=== PATIENT | female | born 1985 | race American Indian/Alaskan Native ===

== ENCOUNTER 2017-04-29 09:49 | Emergency (ER) | payer OTHER ==
[2017-04-29] MEDS ORDERED: MOTRIN PO ONE (11:18)
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
[2017-04-29 12:02] VITALS: BP 144/91
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
== END 2017-04-29 13:56 | disposition home or self-care (01) ==
LOC: ED 09:49
DX: S13.4XXA Sprain of ligaments of cervical spine, initial encounter (principal); V89.2XXA Person injured in unspecified motor-vehicle accident, traffic, initial encounter; Y93.89 Activity, other specified; Y99.8 Other external cause status; Y92.488 Other paved roadways as the place of occurrence of the external cause
CPT/HCPCS: 72040; 72070; 99283

== ENCOUNTER 2018-04-28 07:46 | Day surgery (SDC) | payer MEDICAID ==
[2018-04-28] MEDS ORDERED: DILAUDID IV PRN (08:52)
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
--- NOTE | 2018-04-28 08:52 | Anesthesia Day of Surgery ---
Anesthesia Day of Surgery - Day of Surgery Patient Examined: Yes Patient H&P Reviewed: Yes Patient is NPO: Yes
[2018-04-28] MEDS ORDERED: PROVENTIL IH NR (09:00)
[2018-04-28] MEDS ORDERED: LACTATED RINGERS 1,000 ML IV SCH (09:00)
[2018-04-28] MEDS ORDERED: VERSED IV NR (09:00)
[2018-04-28] MEDS ORDERED: SUBLIMAZE ONE (09:41)
[2018-04-28] MEDS ORDERED: DIPRIVAN 10 MG/ML IV ONE (09:42)
[2018-04-28] MEDS ORDERED: XYLOCAINE MPF 2% ONE (09:43)
--- NOTE | 2018-04-28 09:54 | Short Stay Summary ---
Short Stay Documentation Date of service: 04/28/18 Narrative H&P: Pt is a 32yo BF LMP 03/27/18 presents for cervical ablation due to cervical dysplasia. Pap 11/05/2017 showed High-grade squamous intraepithelial lesion (HSIL) and cervical biopsy showed ZAIDA-1 and negative ECS. She is therefore scheduled for cervical ablation due to the discrepancy of the Pap and the biopsy. - History Principal diagnosis: Cervical dysplasia H&P: obtained from office Past Medical History: other (Asthma) Past Surgical History: Other (Breast reduction; neck tumor) Social history: no significant social history, single - Allergies and Medications Current Medications: Allergies No Known Allergies Allergy (Verified 04/27/18 08:57) Home Medications Medication Instructions Recorded Confirmed Last Taken Type ALBUTEROL Inhaler (OR & NICU) 2 puff IH QID PRN 01/05/18 04/27/18 Unknown History [Proair] Active Medications Albuterol (Proventil) 2.5 mg IH PREOP NR Stop: 04/28/18 18:00 Last Admin: 04/28/18 09:50 Dose: 2.5 mg Documented by: Hydromorphone HCl (Dilaudid) 0.5 mg IV Q10MIN PRN PRN Reason: Pain , Severe (7-10) Stop: 04/28/18 20:00 Lactated Ringer's (Lactated Ringers) 1,000 mls @ 100 mls/hr IV DIRECT GARRET Last Admin: 04/28/18 09:51 Dose: 100 mls/hr Documented by: Midazolam HCl (Versed) 2 mg IV PREOP NR Stop: 04/28/18 23:59 - Physical exam General appearance: no acute distress Integumentary: no rash HEENT: Atraumatic Lungs: Clear to auscultation Breasts: deferred Heart: Regular rate Gastrointestinal: normal Female Genitourinary: deferred Rectal Exam: deferred Extremities: no ischemia, No edema Neurological: Normal gait, Normal speech - Brief post op/procedure progress note Date of procedure: 04/28/18 Pre-op diagnosis: Cervical dysplasia Post-op diagnosis: same Procedure: Cervical ablation using bipolar cautery. Anesthesia: GETA Findings: A grossly normal-appearing cervix. Surgeon: GUNNAR WATSON Estimated blood loss: none Pathology: none Condition: stable - Hospital course Hospital course: Unremarkable. - Disposition Condition at discharge: Good Disposition: DC-01 TO HOME OR SELFCARE - Discharge Diagnoses (1) Cervical dysplasia Status: Resolved Short Stay Discharge Plan Activity: no restrictions Diet: regular Follow up with: ILEANA MIR MD [Primary Care Provider] - 7 Days GUNNAR WATSON MD [Staff Physician] - 14 Days Prescriptions: Ibuprofen [Motrin] 800 mg PO Q8HR PRN #30 tablet PRN Reason: Pain, Moderate (4-6)
[2018-04-28] MEDS ORDERED: ANCEF/STERILE WATER 2 GM/20 ML 2 GM/20 ML SYRINGE IV NR (10:00)
[2018-04-28 10:05] LABS: Basophils % (Auto) 0.7 % (0.0-1.8); Eosinophils # (Auto) 0.1 K/mm3 (0.0-0.4); Eosinophils % (Auto) 2.2 % (0.0-4.3); Hematocrit 36.2 % (30.3-42.9); Lymphocytes # (Auto) 1.8 K/mm3 (1.2-5.4); Lymphocytes % (Auto) 29.8 % (13.4-35.0); Mean Corpuscular HGB Conc 33 % (30-34); Mean Corpuscular Volume 88 fl (79-97); Monocytes # (Auto) 0.5 K/mm3 (0.0-0.8); Monocytes % (Auto) 8.2 % (0.0-7.3); Platelet Count 222 K/mm3 (140-440); Red Blood Count 4.11 M/mm3 (3.65-5.03); Red Cell Distribution Width 12.8 % (13.2-15.2)
[2018-04-28] MEDS ORDERED: MONSEL'S TP ONE ×2 (10:18→10:56)
[2018-04-28] MEDS ORDERED: XYLOCAINE TOPICAL 2% 5ML ONE (10:18)
[2018-04-28] MEDS ORDERED: XYLOCAINE 2%/ EPI 1:200,000 INFILTRATI ONE (10:18)
[2018-04-28] MEDS ORDERED: ACETIC ACID 3% SOLN TP ONE (10:19)
[2018-04-28] MEDS ORDERED: LUGOL'S SOLUTION 5% TP ONE (10:19)
[2018-04-28] MEDS ORDERED: SILVER NITRATE TP ONE (10:22)
[2018-04-28] MEDS ORDERED: THERMAZENE 50 GRAM TP ONE (10:25)
[2018-04-28] MEDS ORDERED: QUELICIN ONE (10:25)
[2018-04-28] MEDS ORDERED: ZOFRAN ONE (10:25)
[2018-04-28] MEDS ORDERED: DECADRON ONE (10:25)
--- NOTE | 2018-04-28 11:13 | Operative Report ---
Operative Report Operative Report: Date of procedure: 04/28/2018 Pre-operative diagnosis: Cervical dysplasia Post-operative diagnosis: Same Procedure name(s): Cervical ablation using bipolar cautery Surgeon: Mateo Reed MD Back Maker: None Anesthesia: Gen. endotracheal intubation by Dr. Fay EBL: Minimal Findings: A grossly normal appearing cervix. Procedure: After the patient was correctly identified, she was prepped and draped in usual sterile fashion and placed in dorsal lithotomy position. First the bladder was emptied using a straight catheter, and the speculum was placed in vaginal vault and the anterior lip of the cervix was grasped using single- tooth tenaculum. Visualization of the cervix showed a grossly normal-appearing cervix without any obvious lesions. The Bovie cautery was set with a rollerball to ablate the entire cervix and endocervical canal, and excellent ablation was performed. Monsel solution was then placed over the cervix and the procedure was considered complete. All instruments removed from the vagina, the patient tolerated the procedure well and was transferred to recovery room in stable condition.
[2018-04-28 13:02] VITALS: BP 142/88
== END 2018-04-28 12:54 | disposition home or self-care (01) ==
LOC: OR 07:46
PROVIDERS: ATTEND Obstetrics & Gynecology
DX: N87.9 Dysplasia of cervix uteri, unspecified (principal); J45.909 Unspecified asthma, uncomplicated; G43.909 Migraine, unspecified, not intractable, without status migrainosus; I10 Essential (primary) hypertension; K21.9 Gastro-esophageal reflux disease without esophagitis; F17.210 Nicotine dependence, cigarettes, uncomplicated; Z98.890 Other specified postprocedural states; Z79.899 Other long term (current) drug therapy; Z72.89 Other problems related to lifestyle; Z86.2 Personal history of diseases of the blood and blood-forming organs and certain disorders involving the immune mechanism
CPT/HCPCS: 36415; 57510; 81025; 85025; J0330; J0690; J1100; J2250; J2405; J2704; J3010; J7120

== ENCOUNTER 2020-06-29 13:34 | Emergency (ER) | payer SELFPAY ==
[2020-06-29] MEDS ORDERED: AZITHROMYCIN 250 MG TAB PO ONE (14:32)
[2020-06-29] MEDS ORDERED: LIDOCAINE-MPF (1%) 10 MG/1 ML VIAL 5 ML INFILTRATI ONE (14:32)
[2020-06-29 14:38] VITALS: BP 160/96
--- NOTE | 2020-06-29 14:40 | Emergency Department Report ---
ED General Adult HPI - General Chief complaint: Urogenital-Female Stated complaint: POSS STD Time Seen by Provider: 06/29/20 13:42 Source: patient Mode of arrival: Ambulatory Limitations: No Limitations - History of Present Illness Initial comments: This pleasant 34-year-old female presents the emergency department with a chief complaint of urinary frequency, dysuria and abnormal menstrual cycles. She also reports she was tested for gonorrhea chlamydia a few months ago and tested positive she received Rocephin and azithromycin but her partner did not and she started to have the symptoms again. She denies any pelvic pain, fever, chills, night sweats, headache, dizziness, blurry vision, nausea, vomiting, diarrhea, chest pain, shortness of breath or any other associated symptoms. - Related Data Home Medications Medication Instructions Recorded Confirmed Last Taken Albuterol Mdi (or & Nicu Only) 2 puff IH QID PRN 01/05/18 04/27/18 Unknown [Proair] Previous Rx's Medication Instructions Recorded Last Taken Type Ibuprofen [Motrin] 800 mg PO Q8HR PRN #30 tablet 04/28/18 Unknown Rx Allergies Allergy/AdvReac Type Severity Reaction Status Date / Time No Known Allergies Allergy Verified 04/27/18 08:57 ED Review of Systems ROS: Stated complaint: POSS STD Other details as noted in HPI Comment: All other systems reviewed and negative Constitutional: denies: chills, fever Eyes: denies: eye pain, eye discharge, vision change ENT: denies: ear pain, throat pain Respiratory: denies: cough, shortness of breath, wheezing Cardiovascular: denies: chest pain, palpitations Endocrine: no symptoms reported Gastrointestinal: denies: abdominal pain, nausea, diarrhea Genitourinary: as per HPI, dysuria, frequency. denies: discharge Musculoskeletal: denies: back pain, joint swelling, arthralgia Skin: denies: rash, lesions Neurological: denies: headache, weakness, paresthesias Psychiatric: denies: anxiety, depression Hematological/Lymphatic: denies: easy bleeding, easy bruising ED Past Medical Hx - Past Medical History Previous Medical History?: Yes Hx Hypertension: Yes (noncompliant with amlodipine) Hx Heart Attack/AMI: No Hx GERD: Yes Hx Liver Disease: No Hx Renal Disease: No Hx Headaches / Migraines: Yes (MIGRAINES) Hx Seizures: No Hx Asthma: Yes (Exercise induced; no recent inhaler use) Hx Tuberculosis: Yes (POSITIVE SKIN TEST,RECEIVED TX,NEG CXR AT AGE 5 YRS) - Surgical History Past Surgical History?: Yes Hx Breast Surgery: Yes (BREAST REDUCTION) Additional Surgical History: Breast Reduction. tonsillectomy. cervical ablation x 2 - Social History Smoking Status: Current Every Day Smoker Substance Use Type: Alcohol, Marijuana - Medications Home Medications: Home Medications Medication Instructions Recorded Confirmed Last Taken Type Albuterol Mdi (or & Nicu Only) 2 puff IH QID PRN 01/05/18 04/27/18 Unknown History [Proair] Ibuprofen [Motrin] 800 mg PO Q8HR PRN #30 tablet 04/28/18 Unknown Rx ED Physical Exam - General Limitations: No Limitations General appearance: alert, in no apparent distress - Head Head exam: Present: atraumatic, normocephalic - Eye Eye exam: Present: normal appearance, PERRL, EOMI Pupils: Present: normal accommodation - ENT ENT exam: Present: normal exam, normal orophraynx, mucous membranes moist - Neck Neck exam: Present: normal inspection, full ROM. Absent: tenderness, meningismus - Respiratory Respiratory exam: Present: normal lung sounds bilaterally. Absent: respiratory distress, wheezes, rales, rhonchi, stridor - Cardiovascular Cardiovascular Exam: Present: regular rate, normal rhythm, normal heart sounds. Absent: systolic murmur, diastolic murmur, rubs, gallop - GI/Abdominal GI/Abdominal exam: Present: soft, normal bowel sounds. Absent: distended, tenderness, guarding, rebound, rigid - Extremities Exam Extremities exam: Present: normal inspection, full ROM, normal capillary refill. Absent: tenderness, calf tenderness - Back Exam Back exam: Present: normal inspection, full ROM. Absent: tenderness, CVA tenderness (R), CVA tenderness (L) - Neurological Exam Neurological exam: Present: alert, oriented X3 - Psychiatric Psychiatric exam: Present: normal affect, normal mood - Skin Skin exam: Present: warm, dry, intact, normal color. Absent: rash ED Course Vital Signs 06/29/20 14:35 Temperature 98.5 F Pulse Rate 63 Respiratory 18 Rate Blood Pressure 160/96 O2 Sat by Pulse 100 Oximetry - Reevaluation(s) Reevaluation #1: 06/29/20 15:59 Patient nontoxic in no acute distress. Vital signs are stable. Patient had lower abdominal pain however on examination there is no tenderness palpation. She is concerned about exposure to an STD. She will be treated empirically with Rocephin and azithromycin but educated that he was not tested for any STDs at this time and that he need to follow-up with the health department for full STD work-up including HIV, hepatitis, syphilis, gonorrhea, chlamydia, trichomonas, herpes simplex and any other possible STD exposures he may have had. She understood that he need to wait a least a week after treating to have sexual intercourse and that all of his partners need to be treated. She verbalized understand the diagnosis, treatment plan and follow-up instructions all his questions were answered. ED Medical Decision Making - Differential Diagnosis UTI, std, menorrhagia Critical care attestation.: If time is entered above; I have spent that time in minutes in the direct care of this critically ill patient, excluding procedure time. ED Disposition Clinical Impression: STD exposure Disposition: DC-01 TO HOME OR SELFCARE Is pt being admited?: No Condition: Stable Instructions: Vaginitis, [id number] Referrals: [facility] [Provider Group] - 3-5 Days Time of Disposition: 15:59
[2020-06-29 16:23] LABS: Bilirubin,Urine NEG (Negative); Blood,Urine SM (Negative); Color,Urine Straw (Yellow); Mucus,Urine FEW /HPF; Protein,Urine <15 mg/dL mg/dL (Negative); Urobilinogen,Urine < 2.0 mg/dL (<2.0)
[2020-06-29 16:25] LABS: HCG Qualitative,Urine Negative (Negative)
== END 2020-06-29 16:29 | disposition home or self-care (01) ==
LOC: ED 13:34
DX: R35.0 Frequency of micturition (principal); I10 Essential (primary) hypertension; K21.9 Gastro-esophageal reflux disease without esophagitis; G43.909 Migraine, unspecified, not intractable, without status migrainosus; J45.909 Unspecified asthma, uncomplicated; F17.200 Nicotine dependence, unspecified, uncomplicated; F12.10 Cannabis abuse, uncomplicated; Z20.2 Contact with and (suspected) exposure to infections with a predominantly sexual mode of transmission; Z79.899 Other long term (current) drug therapy
CPT/HCPCS: 81001; 81025; 96372; 99283; J0696